=== PATIENT | female | born 1945 | race Caucasian/White ===

== ENCOUNTER 2021-02-06 08:19 | Inpatient (IN) | payer OTHER, BC, SELFPAY ==
[~2021-02-06] VITALS: Ht 162.6 cm; Wt 51.3 kg
--- NOTE | 2021-02-06 08:30 | NUR ---
Placed in room 8 . Placed on desk monitor, blood pressure machine and pulse oximeter. To gown for exam. Side rails up. Report given to JUANITA Valiente.
[2021-02-06 08:43] VITALS: BP_SYST 111
--- NOTE | 2021-02-06 08:46 | NUR ---
ER Dr. Hurd at bedside examining patient.
--- NOTE | 2021-02-06 08:54 | NUR ---
Pt BIB via wheel chair, c/o N/V x5 days after eating [place], weakness, no pain. Pt A&O x3-4 at this time.
[2021-02-06] MEDS ORDERED: NACL 0.9% 1,000 ML IV ONE (09:00)
[2021-02-06 09:21] LABS: BASOPHILS % (AUTO) 0.7 % (0.0-2.0); LYMPHOCYTES # (AUTO) 0.9 K/uL (1.0-5.5); LYMPHOCYTES % (AUTO) 12.5 % (20.5-51.5); MEAN CORPUSCULAR HEMOGLOBIN 34 pg (27-31); MEAN CORPUSCULAR HGB CONC 33 % (32-36); MEAN CORPUSCULAR VOLUME 102 fL (79.0-98.0); MONOCYTES # (AUTO) 0.3 K/uL (0.0-1.0); MONOCYTES % (AUTO) 4.4 % (1.7-9.3); NEUTROPHILS # (AUTO) 5.8 K/uL (1.8-7.7); NEUTROPHILS % (AUTO) 82.4 % (40.0-70.0); PLATELET COUNT (AUTO) 213 K/uL (130-430); RED CELL DISTRIBUTION WIDTH 14.3 % (9.0-15.0); WHITE BLOOD COUNT (AUTO) 7.1 K/uL (4.8-10.8)
[2021-02-06 09:26] LABS: ANION GAP 11 (5-15); CALCIUM 8.6 mg/dL (8.4-11.0); CHLORIDE 107 mmol/L (98-107); CREATININE 1.24 mg/dL (0.55-1.30); GLUCOSE 169 mg/dL (70-99); POTASSIUM 3.9 mmol/L (3.5-5.1); SODIUM SERUM 140 mmol/L (136-145); UREA NITROGEN, BLOOD 44 mg/dL (8-21)
--- NOTE | 2021-02-06 09:28 | NUR ---
Radiology at bedside with patient.
[2021-02-06 09:29] LABS: PROTHROMBIN TIME 10.8 SECS (9.5-12.5)
[2021-02-06 09:31] LABS: RED BLOOD CELL COUNT(AUTO) 1.51 MIL/uL (4.2-6.2)
[2021-02-06 09:32] LABS: HEMATOCRIT 15.4 % (36-48); HEMOGLOBIN 5.1 g/dL (12.0-16.0)
--- NOTE | 2021-02-06 09:50 | NUR ---
COVID swab performed at bedside and sent to lab
[2021-02-06 09:51] LABS: ALANINE AMINOTRANSFERASE 23 U/L (12-78); ALBUMIN 3.2 g/dL (3.4-4.8); ASPARTATE AMINOTRANSFERASE 11 U/L (10-37); TOTAL BILIRUBIN 0.2 mg/dL (0.0-1.0)
--- NOTE | 2021-02-06 09:59 | NUR ---
CONSENT OBTAINED FOR BLOOD TRANSFUSION
--- NOTE | 2021-02-06 10:00 | NUR ---
# 20 gauge angiocath placed to RAC. Use of asceptic technique. Opsite placed over site. Blood return noted. Blood for lab drawn from site. Flushed with 10 cc of normal saline. No evidence of infiltration noted. Patient tolerated well.
[2021-02-06] MEDS ORDERED: PANTOPRAZOLE SODIUM 40 MG in NS 50 ML IV ONE (10:15)
[2021-02-06] MEDS ORDERED: PANTOPRAZOLE SODIUM 80 MG in NS 100 ML IV ONE ×2 (10:15→10:30)
[2021-02-06] MEDS ORDERED: ZALE10CA PO (10:22)
[2021-02-06] MEDS ORDERED: DIVA500T4 PO (10:22)
[2021-02-06] MEDS ORDERED: LOSA100T3 PO (10:22)
[2021-02-06] MEDS ORDERED: PRO40 PO (10:22)
[2021-02-06] MEDS ORDERED: ZOLP10TA2 PO (10:22)
[2021-02-06] MEDS ORDERED: RIVA1PAT3 TP (10:22)
[2021-02-06] MEDS ORDERED: OLAN2.5T29 PO (10:22)
[2021-02-06] MEDS ORDERED: VITD2000 PO (10:22)
[2021-02-06] MEDS ORDERED: TRAZ-250 PO (10:22)
[2021-02-06] MEDS ORDERED: FERR236T3 PO (10:22)
--- NOTE | 2021-02-06 10:23 | NUR ---
Medication reconciliation completed with information provided by PT'S . Any prior medication reconciliation on file was reviewed and corrected.
[2021-02-06] MEDS ORDERED: PANTOPRAZOLE SODIUM 40 MG/VIAL (PROTONIX) ONE ×3 (10:25→20:29)
[2021-02-06 10:38] LABS: BILIRUBIN,URINE NEGATIVE (NEGATIVE); BLOOD, URINE NEGATIVE (NEGATIVE); CLARITY/URINE CLEAR (CLEAR); COLOR,URINE YELLOW (YELLOW); GLUCOSE,URINE NEGATIVE (NEGATIVE); KETONES,URINE NEGATIVE (NEGATIVE); LEUKOCYTE ESTERASE ,URINE TRACE (NEGATIVE); NITRITE, URINE POSITIVE (NEGATIVE); PH,URINE 5.5 (5.0-8.0); PROTEIN URINE NEGATIVE (NEGATIVE); UROBILINOGEN,URINE 0.2 (0.2-1.0)
--- NOTE | 2021-02-06 10:46 | NUR ---
Called ICU to request bed for patient, Charge nurse Rizwana is in with a patient, she will call me back.
--- NOTE | 2021-02-06 11:30 | NUR ---
PER LAB BLOOD CAME BACK ANTIBODY+, DELAY IN PRBC'S, WILL CALL BACK WITH UPDATE
[2021-02-06 12:13] LABS: RBC,URINE 0-3 /HPF (0-3)
[2021-02-06 12:14] LABS: BACTERIA,URINE MANY /HPF (None Seen)
[2021-02-06] MEDS: D5NS 1,000 ML IV SCH ×2 (12:49→20:33)
--- NOTE | 2021-02-06 13:27 | NUR ---
PER LAB [facility] HAS BEEN CONTACTED FOR APPROPRIATE BLOOD PRODUCTS STAT, WILL CALL BACK FOR UPDATE
--- NOTE | 2021-02-06 15:00 | NUR ---
1ST UNIT OF PRBC STARTED PER PROTOCOL, V/S STABLE, PT AAOX4
--- NOTE | 2021-02-06 15:43 | NUR ---
PT PROVIDED WITH HOSPITAL BED, FRESH LININS
[2021-02-06] MEDS ORDERED: PANTOPRAZOLE SODIUM 40 MG/VIAL (PROTONIX) IVP ONE (16:00)
--- NOTE | 2021-02-06 16:50 | NUR ---
2ND UNIT PRBC'S STARTED, PT TOLERATING WELL
--- NOTE | 2021-02-06 17:30 | NUR ---
PT RESTING IN BED, AOX4, V/S STABLE, WATCHING TV
--- NOTE | 2021-02-06 19:10 | NUR ---
REPORT GIVEN TO JUANITA ENGLISH FOR CONTINUING CARE
--- NOTE | 2021-02-06 19:50 | NUR ---
Patient will be admitted to care of Dr. Peoples. Admitted to ICU unit. Will go to room ICU 3. Belongings list completed. Complete and up to date summary report printed. SBAR report to be given at bedside with opportunity for questions.
--- NOTE | 2021-02-06 19:50 | NUR ---
Transfer to ICU via ACLS protocol. Licensed nurse present. IV present no signs or symptoms of infiltration.
[2021-02-06 20:04] LABS: HEMATOCRIT 20.6 % (36-48)
[2021-02-06 20:09] LABS: TOTAL IRON BIND. CAPACITY 235 ug/dL (250-450)
[2021-02-06 20:10] VITALS: BP_SYST 137
[2021-02-06] MEDS: traZODone HCL 50 MG TABLET (DESYREL) PO SCH (20:32)
[2021-02-06] MEDS: PANTOPRAZOLE SODIUM 40 MG/VIAL (PROTONIX) IVP SCH (20:32)
[2021-02-06] MEDS: ZOLPIDEM TARTRATE 5 MG TABLET PO PRN (20:32)
[2021-02-06 21:00] VITALS: BP_SYST 130
[2021-02-06] MEDS: DIVALPROEX SODIUM 500 MG TAB.SR.24H (DEPAKOTE ER) PO SCH (21:00)
[2021-02-06] MEDS ORDERED: PANTOPRAZOLE SODIUM 40 MG TAB PO SCH (21:00)
--- NOTE | 2021-02-06 21:07 | NUR ---
PAGED FOR ORDERS DIALED: [phone] SPOKE TO: ROBERTO
--- NOTE | 2021-02-06 21:25 | NUR ---
PAGED: CALLED DR. MARINO & INFORMED OF NEW HGB RESULT= 7.0 RECEIVED NEW ORDER FOR 1 PRBC. TELEPHONE ORDER READ BACK & VERIFIED.
[2021-02-06 22:00] VITALS: BP_SYST 113
[2021-02-06 23:00] VITALS: BP_SYST 119
[2021-02-07] VITALS (17 sets, daily range): BP systolic 101–135
--- NOTE | 2021-02-07 01:18 | NUR ---
BT INITIATION: 2 RNs verified blood prior to transfusion. Vital signs taken within 5 minutes prior to initiation of transfusion. RN will remain with patient for first 15 minutes of transfusion at which time vital signs will be re-assessed. Patient aware of blood transfusion. Denies any respiratory issues or any other complaints.
--- NOTE | 2021-02-07 04:00 | NUR ---
Blood transfusion received. NS bag flushed. Patient is AAOx4. Communicates verbally. Cooperative and denies any complaints.
--- NOTE | 2021-02-07 04:59 | NUR ---
Nutrition Update Kiko Scale 18 noted. Pt admitted for Anemia Diet: Clear liquid BMI: 19.4 kg/m2 RD to follow per nutrition care standards.
[2021-02-07 05:38] LABS: HEMATOCRIT 23.6 % (36-48)
--- NOTE | 2021-02-07 09:30 | NUR ---
Dr. Brown aware of consult
--- NOTE | 2021-02-07 09:30 | NUR ---
Call Dr. Barker with a consult, spoke with Shy from doctors office
[2021-02-07] MEDS: PANTOPRAZOLE SODIUM 40 MG/VIAL (PROTONIX) IVP SCH ×2 (09:49→21:32)
[2021-02-07] MEDS: DIVALPROEX SODIUM 500 MG TAB.SR.24H (DEPAKOTE ER) PO SCH ×2 (09:49→21:32)
[2021-02-07] MEDS: D5NS 1,000 ML IV SCH ×2 (09:50→21:38)
[2021-02-07 10:38] LABS: HEMATOCRIT 24.2 % (36-48); HEMOGLOBIN 8.3 g/dL (12.0-16.0)
--- NOTE | 2021-02-07 14:30 | NUR ---
Given report to Sarah, patient is going to room 110 b, patient did have 2 bm , black in color, patient with d5 ns at 60 ml/hr, and will be prepared for egd and colonoscopy.
--- NOTE | 2021-02-07 14:35 | NUR ---
Received report from Jag/TOUCH UP WORKER for continuity of care. Pt to transfer to RM 110B.
--- NOTE | 2021-02-07 15:15 | NUR ---
Opening Notes Patient is awake, alert and oriented x4. No resp distress noted. Breathing is even and unlabored. Pt is c/o 3/10 headache, requesting Tylenol. Will follow up with Dr. Bush. IV site on right AC 20 gauge intact at this time. D5NS @ 60 cc/hr, infusing well at this time. IV site is leaking at this time. Will restart IV start. Pt denies any NVD, cough. Pt reports dark stools, but no episodes today. Pt is ambulatory, supervision needed. , Alphonse by bedside. Pt educated on bowel prep for EGD and colonoscopy tomorrow. All needs met. Safety and fall precautions in place. Bed in lowest position, alarm on, locked. Will continue to monitor.
--- NOTE | 2021-02-07 16:00 | NUR ---
Notes Patient is laying in bed, resting at this time. No resp distress noted. Breathing is even and unlabored. Will continue to monitor.
[2021-02-07] MEDS ORDERED: ACETAMINOPHEN 325 MG TABLET PO PRN (16:30)
[2021-02-07] MEDS ORDERED: ACETAMINOPHEN 325 MG TABLET ONE (16:36)
[2021-02-07 16:50] LABS: HEMATOCRIT 23.6 % (36-48); HEMOGLOBIN 8.2 g/dL (12.0-16.0)
[2021-02-07] MEDS ORDERED: BISACODYL 5 MG TABLET.DR (DULCOLAX) PO ONE (17:00)
[2021-02-07] MEDS ORDERED: GOLYTELY / COLYTE SOLUTION 4 LITERS PO ONE (18:00)
--- NOTE | 2021-02-07 18:45 | NUR ---
Closing Notes Patient is awake, alert and oriented x4. , Alphonse by bedside. No resp distress noted. Breathing is even and unlabored. Pt denies any pain at this time. IV site on left FA 20 gauge intact at this time. D5NS @ 60 cc/hr, infusing well at this time. Pt in process of drinking Golytely. Will endorse to next shift to follow up. NPO by midnight. All needs met. Safety and fall precautions in place. Bed in lowest position, locked. Will continue to monitor.
[2021-02-07] MEDS ORDERED: DIVALPROEX SODIUM 500 MG TAB.SR.24H (DEPAKOTE ER) PO ONE (21:14)
[2021-02-07] MEDS: traZODone HCL 50 MG TABLET (DESYREL) PO SCH (21:32)
--- NOTE | 2021-02-07 21:40 | NUR ---
Golytely/Bathroom Pt finished drinking bottle of Golyetely. Ambulates to the bathroom. Notice loose black stool in toilet. BSC provided to pt for the night as pt requests Ambien for sleep. Encouraged pt to call for assistance. Pt verb understanding. To monitor.
[2021-02-07] MEDS: ZOLPIDEM TARTRATE 5 MG TABLET PO PRN (23:17)
[2021-02-08 00:19] LABS: HEMATOCRIT 25.2 % (36-48); HEMOGLOBIN 8.5 g/dL (12.0-16.0)
[2021-02-08 01:23] VITALS: BP_SYST 120
--- NOTE | 2021-02-08 02:00 | NUR ---
Rounds Pt asleep, no s/s distress noted. IVF infusing at ordered rate. Bed low, locked, siderails up x3. To monitor.
--- NOTE | 2021-02-08 06:05 | NUR ---
Closing notes/Tap water enema @ 0535: Pt awake. Explained to pt procedure. Tap water enema approx total of 1L given. Pt had multiple pebble like black stool after 1st enema. After 2nd enema, black small sediments watery stool noted. Pt tolerated well. Pericare supplies provided and gown and linens changed. IVF infusing at ordered rate L. FA 20G clear and patent. Call light within reach. Bed low, locked, siderails up x2. To endorse to AM nurse.
--- NOTE | 2021-02-08 06:41 | NUR ---
Moisés Brown, spoke with Jasmin answering service. Pt's bowel is not clear. Awaiting callback.
[2021-02-08 07:35] LABS: HEMATOCRIT 28.3 % (36-48); HEMOGLOBIN 9.3 g/dL (12.0-16.0)
[2021-02-08 07:45] VITALS: BP_SYST 120
--- NOTE | 2021-02-08 07:45 | NUR ---
0745: Rec'd pt A+Ox4, laying in bed. Pt denies pain. IV noted to arm infusing D5NS@60ml/hr. CSMW satisfactory. No headache/dizziness, chest pain, numbness, tingling, edema. Lungs clear. No SOB/cough. RA 100%. BSx4. LBM this am from bowel prep- "black rashmi, sediment" per mini shifter nurse report. Void QS. No N+V. No skin concerns. VSS. NPO for EGD/colonoscopy. 0845: Pt left floor for EGD. 1015: Pt back from EGD. Report taken. Pt doing well. VSS. No concerns. Will continue to monitor.
[2021-02-08] MEDS: DIVALPROEX SODIUM 500 MG TAB.SR.24H (DEPAKOTE ER) PO SCH (07:50)
[2021-02-08] MEDS: PANTOPRAZOLE SODIUM 40 MG/VIAL (PROTONIX) IVP SCH ×2 (07:52→21:17)
[2021-02-08] MEDS ORDERED: BENZOCAINE 20% 0.5mL UD SPRAY MM ONE (07:56)
[2021-02-08] MEDS ORDERED: SIMETHICONE 40 MG/0.6 ML ML ONE (07:56)
[2021-02-08 08:00] VITALS: BP_SYST 120
[2021-02-08] MEDS: MIDAZOLAM HCL 5 MG/5 ML VIAL ONE ×2 (08:59→09:02)
[2021-02-08] MEDS: fentaNYL CITRATE/PF 100 MCG/2 ML AMP ONE ×2 (08:59→09:02)
[2021-02-08] MEDS: cefTRIAXone 1 GM IVPB PREMIX 50 ML IV SCH (11:59)
--- NOTE | 2021-02-08 12:08 | NUR ---
commode emptied for black tarry stool. Will continue to monitor.
[2021-02-08 12:16] VITALS: BP_SYST 135
[2021-02-08] MEDS: D5NS 1,000 ML IV SCH (14:41)
--- NOTE | 2021-02-08 15:20 | NUR ---
Pt moved into room 109-C due to renovations in 110.
[2021-02-08 16:28] VITALS: BP_SYST 138
[2021-02-08] MEDS ORDERED: MAGNESIUM CITRATE 300 ML ORAL SOLUTION PO ONE (17:00)
[2021-02-08] MEDS ORDERED: BISACODYL 5 MG TABLET.DR (DULCOLAX) PO ONE (17:00)
--- NOTE | 2021-02-08 17:56 | NUR ---
Pt resting in bed with at bedside. No voiced concerns. Pt sipping at bowel prep (mag citrate). Pt still reports black tarry stools. IVF infusing. Will continue to monitor.
--- NOTE | 2021-02-08 19:40 | NUR ---
ROUNDS PATIENT RESTING COMFORTABLY IN BED, NOT IN DISTRESS, VITALS STABLE. ASSESSMENT DONE AND DOCUMENTED. NEEDS ATTENDED TO. SAFETY MEASURES IN PLACED. CALL LIGHT PLACED WITHIN REACH.
[2021-02-08 19:59] LABS: HEMATOCRIT 25.3 % (36-48); HEMOGLOBIN 8.7 g/dL (12.0-16.0)
[2021-02-08] MEDS: DIVALPROEX SODIUM 250 MG TAB.SR.24H (DEPAKOTE ER) PO SCH (21:00)
[2021-02-08] MEDS: traZODone HCL 50 MG TABLET (DESYREL) PO SCH (21:17)
[2021-02-09 00:23] VITALS: BP_SYST 127
[2021-02-09 00:47] LABS: HEMATOCRIT 23.4 % (36-48); HEMOGLOBIN 7.9 g/dL (12.0-16.0)
[2021-02-09] MEDS ORDERED: MAGNESIUM CITRATE 300 ML ORAL SOLUTION PO ONE (04:00)
[2021-02-09] MEDS: D5NS 1,000 ML IV SCH ×2 (04:02→23:17)
--- NOTE | 2021-02-09 05:09 | NUR ---
TAP WATER ENEMA TAP WATER ENEMA DONE, TOLERATED WELL, RETURN FLOW OUTPUT CLEAR. WILL CONTINUE TO MONITOR.
[2021-02-09 06:42] LABS: HEMATOCRIT 24.6 % (36-48); HEMOGLOBIN 8.4 g/dL (12.0-16.0)
[2021-02-09] MEDS: DIVALPROEX SODIUM 250 MG TAB.SR.24H (DEPAKOTE ER) PO SCH ×2 (07:15→21:47)
[2021-02-09 07:30] VITALS: BP_SYST 142
--- NOTE | 2021-02-09 07:30 | NUR ---
0745: Rec'd pt A+Ox4, laying in bed. Pt denies pain. IV noted to arm infusing D5NS@60ml/hr- infiltrated- re-sited to AC area-22g. CSMW satisfactory. No headache/dizziness, chest pain, numbness, tingling, edema. Lungs clear. No SOB/cough. RA 94%. BSx4. LBM this am from bowel prep- clear. Void QS. No N+V. No skin concerns. VSS. NPO for colonoscopy. Will continue to monitor.
[2021-02-09] MEDS: PANTOPRAZOLE SODIUM 40 MG/VIAL (PROTONIX) IVP SCH ×2 (07:35→21:46)
[2021-02-09] MEDS ORDERED: SIMETHICONE 40 MG/0.6 ML ML ONE (07:46)
[2021-02-09 08:05] VITALS: BP_SYST 142
--- NOTE | 2021-02-09 09:20 | NUR ---
Pt left for colonoscopy
[2021-02-09] MEDS: MIDAZOLAM HCL 5 MG/5 ML VIAL ONE ×2 (09:46→09:50)
[2021-02-09] MEDS: fentaNYL CITRATE/PF 100 MCG/2 ML AMP ONE ×2 (09:46→09:51)
--- NOTE | 2021-02-09 10:45 | NUR ---
Pt returned from colonoscopy
[2021-02-09 11:42] LABS: HEMATOCRIT 23.8 % (36-48); HEMOGLOBIN 8.1 g/dL (12.0-16.0)
[2021-02-09] MEDS: cefTRIAXone 1 GM IVPB PREMIX 50 ML IV SCH (11:54)
[2021-02-09 12:22] VITALS: BP_SYST 133
[2021-02-09 16:51] VITALS: BP_SYST 137
--- NOTE | 2021-02-09 18:02 | NUR ---
Pt resting in bed eating dinner. at bedside. No voiced concerns. Call mcmillan in reach. Bed in low position. Will continue to monitor.
[2021-02-09 18:38] LABS: HEMATOCRIT 22.6 % (36-48); HEMOGLOBIN 7.6 g/dL (12.0-16.0)
--- NOTE | 2021-02-09 19:35 | NUR ---
ROUNDS PATIENT RESTING COMFORTABLY IN BED, VITALS STABLE, NO PAIN AT THIS TIME. ASSESSMENT DONE AND DOCUMENTED. SEE FLOWSHEET. NEEDS ATTENDED TO. CALL LIGHT PLACED WITHIN REACH.
--- NOTE | 2021-02-09 21:16 | NUR ---
MEDICATIONS DUE MEDICATIONS GIVEN SCHEDULED, TOLERATED WELL. WILL CONTINUE TO MONITOR.
[2021-02-09] MEDS: traZODone HCL 50 MG TABLET (DESYREL) PO SCH (21:46)
[2021-02-10 00:25] VITALS: BP_SYST 139
--- NOTE | 2021-02-10 06:51 | NUR ---
CLOSING NOTES PATIENT AWAKE, NO COMPLAINTS AT THIS TIME, ALL NEEDS ATTENDED TO. CALL LIGHT PLACED WITHIN REACH.
[2021-02-10] MEDS: PANTOPRAZOLE SODIUM 40 MG/VIAL (PROTONIX) IVP SCH (07:31)
[2021-02-10] MEDS: DIVALPROEX SODIUM 250 MG TAB.SR.24H (DEPAKOTE ER) PO SCH (07:32)
[2021-02-10 07:55] LABS: HEMATOCRIT 24.1 % (36-48)
[2021-02-10 08:35] VITALS: BP_SYST 130
[2021-02-10 08:37] VITALS: BP_SYST 130
--- NOTE | 2021-02-10 08:45 | NUR ---
0730: Rec'd pt A+Ox4, laying in bed. Pt denies pain. IV noted to L AC- infusing D5NS@60ml/hr. CSMW satisfactory. No headache/dizziness, chest pain, numbness, tingling, edema. Lungs clear. No SOB/cough. RA 99%. BSx4. LBM Feb 10- pt states "diarrhea and still black." Void QS. No N+V. No skin concerns. VSS. Med accepting. Low fibre/bland diet. Will continue to monitor.
[2021-02-10 10:17] VITALS: BP_SYST 130
--- NOTE | 2021-02-10 10:37 | NUR ---
Pt discharged. IV removed. All belongings taken home. No home medications to return. DC docs reviewed. All questions answered. Follow up discussed. Pt left in wheelchair out with MANAGEMENT ACCOUNTS MANAGER outside with to car.
== END 2021-02-10 11:00 | disposition home or self-care (01) | DRG 378 ==
LOC: SED 08:19 → SIC 10:51 → SMU 02-07 14:56
PROVIDERS: ADMIT Internal Medicine Hospice and Palliative Medicine; ATTEND Internal Medicine Hospice and Palliative Medicine
PROC: 0DB78ZX Excision of Stomach, Pylorus, Via Natural or Artificial Opening Endoscopic, Diagnostic (ICD-10-PCS; 2021-02-08)
PROC: 0DJD8ZZ Inspection of Lower Intestinal Tract, Via Natural or Artificial Opening Endoscopic (ICD-10-PCS; 2021-02-08)
PROC: 30233N1 Transfusion of Nonautologous Red Blood Cells into Peripheral Vein, Percutaneous Approach (ICD-10-PCS; 2021-02-08)
PROC: 0DB98ZX Excision of Duodenum, Via Natural or Artificial Opening Endoscopic, Diagnostic (ICD-10-PCS; principal; 2021-02-08 09:00)
DX: K26.4 Chronic or unspecified duodenal ulcer with hemorrhage (principal); D62 Acute posthemorrhagic anemia; N39.0 Urinary tract infection, site not specified; K57.31 Diverticulosis of large intestine without perforation or abscess with bleeding; K25.4 Chronic or unspecified gastric ulcer with hemorrhage; I10 Essential (primary) hypertension; G43.909 Migraine, unspecified, not intractable, without status migrainosus; G40.909 Epilepsy, unspecified, not intractable, without status epilepticus; K64.8 Other hemorrhoids; K46.9 Unspecified abdominal hernia without obstruction or gangrene; Z20.822 Contact with and (suspected) exposure to COVID-19; Z88.5 Allergy status to narcotic agent; Z79.899 Other long term (current) drug therapy; Z90.710 Acquired absence of both cervix and uterus
CPT/HCPCS: 36415; 36430; 43239; 45378; 71045; 80053; 81000; 82272; 82607; 82728; 82746; 83010; 83540; 83550; 83605; 83615; 84443; 84484; 85018; 85025; 85384; 85610-TC; 85730-TC; 86870; 86886; 86900; 86901; 86920; 87081; 87086; 88305; 88312; 88313; 93005; 96365; 96368; 99291; C9113; J0696; J2250; J3010; P9021

== ENCOUNTER 2023-01-03 21:26 | Emergency (ER) | payer OTHER, BC ==
[~2023-01-03] VITALS: Ht 167.6 cm; Wt 59.0 kg
[~2023-01-03 21:26] MED LIST: DIVA500T4 PO; FERR236T3 PO; LOSA-415 PO; OLAN2.5T29 PO; PRO40 PO; RIVA1PAT3 TP; TRAZ-250 PO; VITD2000 PO; ZALE10CA PO; ZOLP10TA2 PO
[2023-01-03 22:39] VITALS: BP_SYST 104; PULSE 102; RESP 18; TEMP 98.3; O2SAT 99
[2023-01-04 00:41] VITALS: BP_SYST 105; PULSE 81; RESP 20; TEMP 98.1; O2SAT 98
== END 2023-01-04 00:41 | disposition home or self-care (01) ==
LOC: SED 21:26
DX: S01.01XA Laceration without foreign body of scalp, initial encounter (principal); Z88.5 Allergy status to narcotic agent; Z79.899 Other long term (current) drug therapy; W18.40XA Slipping, tripping and stumbling without falling, unspecified, initial encounter; Y93.89 Activity, other specified; Y92.89 Other specified places as the place of occurrence of the external cause; Y99.8 Other external cause status
CPT/HCPCS: 70450-TC; 76376; 99284

== ENCOUNTER 2023-02-26 03:27 | Inpatient (IN) | payer OTHER, BC ==
[~2023-02-26] VITALS: Ht 167.6 cm; Wt 48.1 kg
[2023-02-26 03:30] VITALS: BP_SYST 86; PULSE 84; RESP 18; TEMP 98.1; O2SAT 98
[2023-02-26] MEDS ORDERED: NACL 0.9% 1,000 ML IV ONE (03:45)
[2023-02-26] MEDS ORDERED: NOREPINEPHRINE BITARTRATE 4 MG in NS 246 ML IV ONE (03:45)
[2023-02-26] MEDS ORDERED: PANTOPRAZOLE SODIUM 80 MG in NS 100 ML IVP ONE (04:15)
[2023-02-26] MEDS ORDERED: PANTOPRAZOLE SODIUM 40 MG/VIAL (PROTONIX) ONE (04:49)
[2023-02-26 05:01] LABS: BASOPHILS % (AUTO) 0.3 % (0.0-2.0); LYMPHOCYTES # (AUTO) 0.7 K/uL (1.0-5.5); MEAN CORPUSCULAR HEMOGLOBIN 31 pg (27-31); MEAN CORPUSCULAR HGB CONC 31 % (32-36); MEAN CORPUSCULAR VOLUME 102 fL (79.0-98.0); MONOCYTES # (AUTO) 0.7 K/uL (0.0-1.0); MONOCYTES % (AUTO) 6.2 % (1.7-9.3); NEUTROPHILS # (AUTO) 10.1 K/uL (1.8-7.7); NEUTROPHILS % (AUTO) 87.5 % (40.0-70.0); PLATELET COUNT (AUTO) 461 K/uL (130-430); RED CELL DISTRIBUTION WIDTH 14.4 % (9.0-15.0); WHITE BLOOD COUNT (AUTO) 11.6 K/uL (4.8-10.8)
[2023-02-26] MEDS ORDERED: NOREPINEPHRINE 4 MG/4 ML VIAL IV ONE (05:14)
[2023-02-26 05:15] LABS: HEMATOCRIT 18.2 % (36-48); HEMOGLOBIN 5.6 g/dL (12.0-16.0)
[2023-02-26 05:22] LABS: ANION GAP 16 (5-15); CALCIUM 9.1 mg/dL (8.4-11.0); CARBON DIOXIDE 18 mmol/L (23-29); CHLORIDE 107 mmol/L (98-107); CREATININE 1.61 mg/dL (0.55-1.30); GLUCOSE 163 mg/dL (74-106); SODIUM SERUM 141 mmol/L (136-145); UREA NITROGEN, BLOOD 50 mg/dL (8-21)
[2023-02-26 05:27] LABS: ALANINE AMINOTRANSFERASE 27 U/L (12-78); ALBUMIN 3.2 g/dL (3.4-4.8); ASPARTATE AMINOTRANSFERASE 23 U/L (10-37); BILIRUBIN,DIRECT < 0.1 mg/dL (0.0-0.3); TOTAL BILIRUBIN 0.2 mg/dL (0.0-1.0); TOTAL PROTEIN, SERUM 5.5 g/dL (6.4-8.3)
[2023-02-26 05:43] LABS: BILIRUBIN,URINE NEGATIVE (NEGATIVE); BLOOD, URINE NEGATIVE (NEGATIVE); COLOR,URINE YELLOW (YELLOW); GLUCOSE,URINE NEGATIVE (NEGATIVE); KETONES,URINE NEGATIVE (NEGATIVE); LEUKOCYTE ESTERASE ,URINE TRACE (NEGATIVE); NITRITE, URINE NEGATIVE (NEGATIVE); PROTEIN URINE NEGATIVE (NEGATIVE); UROBILINOGEN,URINE 0.2 (0.2-1.0)
[2023-02-26 05:58] LABS: CLARITY/URINE SLIGHTLY CLOUDY (CLEAR)
[2023-02-26 05:59] LABS: BACTERIA,URINE MANY /HPF (None Seen); RBC,URINE 0-3 /HPF (0-3)
[2023-02-26] MEDS: D5NS 1,000 ML IV SCH ×4 (07:30→21:34)
[2023-02-26] MEDS ORDERED: DOCUSATE SODIUM 100 MG CAPSULE PO PRN (09:00)
[2023-02-26] MEDS ORDERED: ACETAMINOPHEN 325 MG TABLET PO PRN ×3 (09:00→09:30)
[2023-02-26] MEDS ORDERED: POTASSIUM CHLORIDE 20 MEQ TABLET.ER PO PRN (09:00)
[2023-02-26] MEDS ORDERED: ONDANSETRON HCL 4 MG/2 ML VIAL IVP PRN (09:00)
[2023-02-26] MEDS ORDERED: LORazepam 2 MG/ML VIAL IVP PRN (09:00)
[2023-02-26] MEDS ORDERED: MUPIROCIN 2% TOPICAL OINTMENT 22 GM NS PRN (09:00)
[2023-02-26] MEDS ORDERED: MAGNESIUM SULFATE 50 ML IV PRN (09:00)
[2023-02-26] MEDS ORDERED: PANTOPRAZOLE SODIUM 40 MG/VIAL (PROTONIX) IVP SCH (09:00)
[2023-02-26 09:17] LABS: INR 1.1 (0.8-1.2); PROTHROMBIN TIME 11.5 SECS (9.5-12.5)
[2023-02-26] MEDS ORDERED: DIVA-72 PO (09:19)
[2023-02-26 09:25] LABS: TOTAL IRON BIND. CAPACITY 285 ug/dL (250-450)
[2023-02-26] MEDS ORDERED: cefTRIAXone 1 GM VIAL ONE (09:27)
[2023-02-26] MEDS: cefTRIAXone 1 GM in D5W 50 ML IV SCH (09:31)
[2023-02-26] MEDS: DIVALPROEX SODIUM 250 MG TABLET(DEPAKOTE) PO SCH ×2 (09:54→21:33)
[2023-02-26] MEDS: OLANZapine 2.5 MG TABLET PO SCH (09:55)
[2023-02-26] MEDS: PANTOPRAZOLE SODIUM 40 MG in NS 50 ML IV SCH ×3 (10:03→20:48)
[2023-02-26] MEDS: RIVASTIGMINE 9.5 MG/24 HR PATCH.TD24 TP SCH (11:11)
[2023-02-26] MEDS ORDERED: NOREPINEPHRINE BITARTRATE 4 MG in NS 246 ML IV PRN (12:00)
[2023-02-26] MEDS ORDERED: ACETAMINOPHEN 500 MG TABLET ONE (16:40)
[2023-02-26 17:51] LABS: MEAN CORPUSCULAR HEMOGLOBIN 31 pg (27-31); MEAN CORPUSCULAR HGB CONC 32 % (32-36); MEAN CORPUSCULAR VOLUME 96 fL (79.0-98.0); PLATELET COUNT (AUTO) 327 K/uL (130-430); RED CELL DISTRIBUTION WIDTH 16.8 % (9.0-15.0); WHITE BLOOD COUNT (AUTO) 17.5 K/uL (4.8-10.8)
[2023-02-26 18:01] LABS: HEMATOCRIT 20.2 % (36-48); HEMOGLOBIN 6.5 g/dL (12.0-16.0)
[2023-02-26] MEDS ORDERED: DIPHENHYDRAMINE HCL 25 MG CAPSULE ONE (18:26)
[2023-02-26] MEDS ORDERED: DIPHENHYDRAMINE HCL 12.5 MG/5 ML UDC PO ONE (18:30)
[2023-02-26] MEDS ORDERED: ACETAMINOPHEN 500 MG TABLET PO PRN ×2 (18:30)
[2023-02-26] MEDS ORDERED: DIPHENHYDRAMINE HCL 25 MG CAPSULE PO ONE (18:45)
[2023-02-26 19:00] VITALS: BP_SYST 117; PULSE 112; RESP 21; O2SAT 98
[2023-02-26 20:00] VITALS: BP_SYST 117; PULSE 107; RESP 20; TEMP 99.8; O2SAT 97
[2023-02-26 21:00] VITALS: BP_SYST 115; PULSE 104; RESP 20; O2SAT 98
[2023-02-26] MEDS: traZODone HCL 50 MG TABLET (DESYREL) PO SCH (21:34)
[2023-02-26] MEDS ORDERED: traZODone HCL 50 MG TABLET (DESYREL) ONE (21:38)
[2023-02-26 21:56] LABS: BAND % (MANUAL) 9 % (0-6); BASOPHILS % (MANUAL) 0 % (0-2); EOSINOPHILS % (MANUAL) 0 % (0-7); LYMPHOCYTES % (MANUAL) 1 % (20-46); MONOCYTES % (MANUAL) 3 % (0-11); PLATELET ESTIMATE ADEQUATE (ADEQUATE); POLYCHROMASIA 1+
[2023-02-26 21:58] LABS: ANISOCYTOSIS 1+
[2023-02-26 22:00] VITALS: BP_SYST 114; PULSE 108; RESP 17; O2SAT 98
[2023-02-26 22:00] LABS: OVALOCYTES FEW
[2023-02-26 23:00] VITALS: BP_SYST 114; PULSE 108; RESP 17; O2SAT 98
[2023-02-26] MEDS: ACETAMINOPHEN 500 MG TABLET PO PRN (23:20)
[2023-02-27] VITALS (23 sets, daily range): BP systolic 101–161; PULSE 96–121; RESP 15–25; TEMP 98.6–99; O2SAT 95–99
[2023-02-27] MEDS: PANTOPRAZOLE SODIUM 40 MG in NS 50 ML IV SCH ×5 (00:23→20:19)
[2023-02-27 00:46] LABS: ANION GAP 10 (5-15); CALCIUM 8.2 mg/dL (8.4-11.0); CARBON DIOXIDE 21 mmol/L (23-29); CHLORIDE 106 mmol/L (98-107); CREATININE 1.18 mg/dL (0.55-1.30); GLUCOSE 146 mg/dL (74-106); SODIUM SERUM 137 mmol/L (136-145); UREA NITROGEN, BLOOD 34 mg/dL (8-21)
[2023-02-27 00:51] LABS: ALANINE AMINOTRANSFERASE 25 U/L (12-78); ALBUMIN 2.6 g/dL (3.4-4.8); ASPARTATE AMINOTRANSFERASE 25 U/L (10-37); TOTAL BILIRUBIN 0.4 mg/dL (0.0-1.0); TOTAL PROTEIN, SERUM 4.8 g/dL (6.4-8.3)
[2023-02-27] MEDS: ZOLPIDEM TARTRATE 5 MG TABLET PO PRN ×2 (01:19→20:20)
[2023-02-27 05:19] LABS: BASOPHILS % (AUTO) 0.1 % (0.0-2.0); LYMPHOCYTES # (AUTO) 0.7 K/uL (1.0-5.5); LYMPHOCYTES % (AUTO) 4.4 % (20.5-51.5); MEAN CORPUSCULAR HEMOGLOBIN 31 pg (27-31); MEAN CORPUSCULAR HGB CONC 33 % (32-36); MEAN CORPUSCULAR VOLUME 94 fL (79.0-98.0); MONOCYTES # (AUTO) 0.6 K/uL (0.0-1.0); MONOCYTES % (AUTO) 3.7 % (1.7-9.3); NEUTROPHILS # (AUTO) 15.4 K/uL (1.8-7.7); NEUTROPHILS % (AUTO) 91.8 % (40.0-70.0); PLATELET COUNT (AUTO) 297 K/uL (130-430); RED CELL DISTRIBUTION WIDTH 17.3 % (9.0-15.0); WHITE BLOOD COUNT (AUTO) 16.8 K/uL (4.8-10.8)
[2023-02-27 05:46] LABS: ANION GAP 11 (5-15); CALCIUM 8.4 mg/dL (8.4-11.0); CARBON DIOXIDE 19 mmol/L (23-29); CHLORIDE 108 mmol/L (98-107); CREATININE 0.95 mg/dL (0.55-1.30); GLUCOSE 131 mg/dL (74-106); POTASSIUM 3.7 mmol/L (3.5-5.1); SODIUM SERUM 138 mmol/L (136-145); UREA NITROGEN, BLOOD 30 mg/dL (8-21)
[2023-02-27 06:17] LABS: RED BLOOD CELL COUNT(AUTO) 1.78 MIL/uL (4.2-6.2)
[2023-02-27 06:18] LABS: HEMATOCRIT 16.8 % (36-48); HEMOGLOBIN 5.5 g/dL (12.0-16.0)
[2023-02-27 07:07] LABS: FOLATE (FOLIC ACID) >20.0 ng/mL (>3.0)
[2023-02-27 08:06] LABS: FERRITIN 30 ng/mL (15-150)
[2023-02-27] MEDS: DIVALPROEX SODIUM 250 MG TABLET(DEPAKOTE) PO SCH ×2 (08:08→20:20)
[2023-02-27] MEDS: OLANZapine 2.5 MG TABLET PO SCH (08:08)
[2023-02-27] MEDS: cefTRIAXone 1 GM in D5W 50 ML IV SCH (08:09)
[2023-02-27] MEDS: RIVASTIGMINE 9.5 MG/24 HR PATCH.TD24 TP SCH (10:06)
[2023-02-27] MEDS: D5NS 1,000 ML IV SCH ×2 (10:06→22:30)
[2023-02-27] MEDS ORDERED: PANTOPRAZOLE SODIUM 40 MG/VIAL (PROTONIX) ONE (10:06)
[2023-02-27] MEDS: metroNIDAZOLE 500 mg/NS 100 ML IV SCH ×2 (12:57→21:22)
[2023-02-27] MEDS: ACETAMINOPHEN 500 MG TABLET PO PRN (16:59)
[2023-02-27 17:56] LABS: BASOPHILS % (AUTO) 0.1 % (0.0-2.0); HEMATOCRIT 28.6 % (36-48); HEMOGLOBIN 9.6 g/dL (12.0-16.0); LYMPHOCYTES # (AUTO) 0.6 K/uL (1.0-5.5); LYMPHOCYTES % (AUTO) 3.5 % (20.5-51.5); MEAN CORPUSCULAR HEMOGLOBIN 31 pg (27-31); MEAN CORPUSCULAR HGB CONC 34 % (32-36); MEAN CORPUSCULAR VOLUME 92 fL (79.0-98.0); MONOCYTES # (AUTO) 0.6 K/uL (0.0-1.0); MONOCYTES % (AUTO) 3.6 % (1.7-9.3); NEUTROPHILS % (AUTO) 92.8 % (40.0-70.0); PLATELET COUNT (AUTO) 239 K/uL (130-430); RED CELL DISTRIBUTION WIDTH 16.6 % (9.0-15.0); WHITE BLOOD COUNT (AUTO) 16.1 K/uL (4.8-10.8)
[2023-02-27] MEDS: traZODone HCL 50 MG TABLET (DESYREL) PO SCH (20:20)
[2023-02-28] VITALS (19 sets, daily range): BP systolic 118–160; PULSE 85–111; RESP 16–21; TEMP 97.6–99; O2SAT 94–99
[2023-02-28] MEDS: PANTOPRAZOLE SODIUM 40 MG in NS 50 ML IV SCH ×5 (01:07→21:00)
[2023-02-28 05:06] LABS: BASOPHILS % (AUTO) 0.1 % (0.0-2.0); HEMATOCRIT 29.2 % (36-48); HEMOGLOBIN 9.7 g/dL (12.0-16.0); LYMPHOCYTES # (AUTO) 0.4 K/uL (1.0-5.5); LYMPHOCYTES % (AUTO) 2.7 % (20.5-51.5); MEAN CORPUSCULAR HEMOGLOBIN 31 pg (27-31); MEAN CORPUSCULAR HGB CONC 33 % (32-36); MEAN CORPUSCULAR VOLUME 92 fL (79.0-98.0); MONOCYTES # (AUTO) 0.6 K/uL (0.0-1.0); MONOCYTES % (AUTO) 4.1 % (1.7-9.3); NEUTROPHILS # (AUTO) 14.1 K/uL (1.8-7.7); NEUTROPHILS % (AUTO) 93.1 % (40.0-70.0); PLATELET COUNT (AUTO) 248 K/uL (130-430); RED BLOOD CELL COUNT(AUTO) 3.16 MIL/uL (4.2-6.2); RED CELL DISTRIBUTION WIDTH 16.5 % (9.0-15.0); WHITE BLOOD COUNT (AUTO) 15.1 K/uL (4.8-10.8)
[2023-02-28] MEDS: metroNIDAZOLE 500 mg/NS 100 ML IV SCH ×3 (05:13→20:55)
[2023-02-28 05:22] LABS: ANION GAP 11 (5-15); CALCIUM 7.4 mg/dL (8.4-11.0); CARBON DIOXIDE 22 mmol/L (23-29); CHLORIDE 106 mmol/L (98-107); CREATININE 0.63 mg/dL (0.55-1.30); GLUCOSE 134 mg/dL (74-106); POTASSIUM 3.3 mmol/L (3.5-5.1); SODIUM SERUM 139 mmol/L (136-145); UREA NITROGEN, BLOOD 13 mg/dL (8-21)
[2023-02-28] MEDS ORDERED: SIMETHICONE 40 MG/0.6 ML ML ONE (07:49)
[2023-02-28] MEDS ORDERED: MIDAZOLAM HCL 5 MG/5 ML VIAL ONE (07:50)
[2023-02-28] MEDS ORDERED: fentaNYL CITRATE/PF 100 MCG/2 ML AMP ONE (07:50)
[2023-02-28] MEDS: OLANZapine 2.5 MG TABLET PO SCH (09:00)
[2023-02-28] MEDS: DIVALPROEX SODIUM 250 MG TABLET(DEPAKOTE) PO SCH ×2 (09:00→20:55)
[2023-02-28] MEDS: cefTRIAXone 1 GM in D5W 50 ML IV SCH (10:04)
[2023-02-28] MEDS: RIVASTIGMINE 9.5 MG/24 HR PATCH.TD24 TP SCH (11:00)
[2023-02-28] MEDS: ACETAMINOPHEN 500 MG TABLET PO PRN (14:34)
[2023-02-28] MEDS: D5NS 1,000 ML IV SCH (18:00)
[2023-02-28] MEDS: traZODone HCL 50 MG TABLET (DESYREL) PO SCH (20:55)
[2023-03-01] VITALS: BP_SYST 144; PULSE 88; RESP 18; TEMP 98.5; O2SAT 96
[2023-03-01] MEDS: PANTOPRAZOLE SODIUM 40 MG in NS 50 ML IV SCH ×2 (02:48→06:42)
[2023-03-01] MEDS: D5NS 1,000 ML IV SCH ×2 (02:50→14:31)
[2023-03-01] MEDS: metroNIDAZOLE 500 mg/NS 100 ML IV SCH ×3 (05:02→20:42)
[2023-03-01 07:41] LABS: ANION GAP 8 (5-15); CALCIUM 7.5 mg/dL (8.4-11.0); CARBON DIOXIDE 25 mmol/L (23-29); CHLORIDE 100 mmol/L (98-107); CREATININE 0.58 mg/dL (0.55-1.30); GLUCOSE 121 mg/dL (74-106); POTASSIUM 3.1 mmol/L (3.5-5.1); SODIUM SERUM 133 mmol/L (136-145); UREA NITROGEN, BLOOD 7 mg/dL (8-21)
[2023-03-01 07:53] LABS: BASOPHILS % (AUTO) 0.4 % (0.0-2.0); EOSINOPHILS # (AUTO) 0.1 K/uL (0.0-0.4); EOSINOPHILS % (AUTO) 0.9 % (0.0-4.0); HEMATOCRIT 28.3 % (36-48); HEMOGLOBIN 9.8 g/dL (12.0-16.0); LYMPHOCYTES # (AUTO) 0.7 K/uL (1.0-5.5); LYMPHOCYTES % (AUTO) 6.6 % (20.5-51.5); MEAN CORPUSCULAR HEMOGLOBIN 32 pg (27-31); MEAN CORPUSCULAR HGB CONC 35 % (32-36); MEAN CORPUSCULAR VOLUME 94 fL (79.0-98.0); MONOCYTES # (AUTO) 0.6 K/uL (0.0-1.0); MONOCYTES % (AUTO) 5.6 % (1.7-9.3); NEUTROPHILS # (AUTO) 9.4 K/uL (1.8-7.7); NEUTROPHILS % (AUTO) 86.5 % (40.0-70.0); PLATELET COUNT (AUTO) 266 K/uL (130-430); RED BLOOD CELL COUNT(AUTO) 3.02 MIL/uL (4.2-6.2); RED CELL DISTRIBUTION WIDTH 16.4 % (9.0-15.0); WHITE BLOOD COUNT (AUTO) 10.8 K/uL (4.8-10.8)
[2023-03-01 08:00] VITALS: BP_SYST 154; PULSE 105; RESP 18; TEMP 97.8; O2SAT 97
[2023-03-01] MEDS: OLANZapine 2.5 MG TABLET PO SCH (09:38)
[2023-03-01] MEDS: cefTRIAXone 1 GM in D5W 50 ML IV SCH (09:39)
[2023-03-01] MEDS: DIVALPROEX SODIUM 250 MG TABLET(DEPAKOTE) PO SCH ×2 (09:39→20:42)
[2023-03-01] MEDS ORDERED: PANTOPRAZOLE SODIUM 40 MG/VIAL (PROTONIX) IVP ONE (11:00)
[2023-03-01 14:22] VITALS: BP_SYST 107; PULSE 82; RESP 18; TEMP 98.5; O2SAT 98
[2023-03-01] MEDS: RIVASTIGMINE 9.5 MG/24 HR PATCH.TD24 TP SCH (14:30)
[2023-03-01 19:40] VITALS: BP_SYST 126; PULSE 71; RESP 18; TEMP 97.9; O2SAT 97
[2023-03-01] MEDS: PANTOPRAZOLE SODIUM 40 MG/VIAL (PROTONIX) IVP SCH (20:42)
[2023-03-01] MEDS: traZODone HCL 50 MG TABLET (DESYREL) PO SCH (20:42)
[2023-03-02 00:15] VITALS: BP_SYST 132; PULSE 102; RESP 16; TEMP 97.7; O2SAT 97
[2023-03-02] MEDS: D5NS 1,000 ML IV SCH ×2 (03:48→13:00)
[2023-03-02] MEDS: metroNIDAZOLE 500 mg/NS 100 ML IV SCH ×2 (05:34→15:49)
[2023-03-02 06:59] LABS: BASOPHILS % (AUTO) 0.3 % (0.0-2.0); EOSINOPHILS # (AUTO) 0.1 K/uL (0.0-0.4); EOSINOPHILS % (AUTO) 0.9 % (0.0-4.0); HEMATOCRIT 28.3 % (36-48); HEMOGLOBIN 9.7 g/dL (12.0-16.0); LYMPHOCYTES # (AUTO) 0.5 K/uL (1.0-5.5); MEAN CORPUSCULAR HEMOGLOBIN 33 pg (27-31); MEAN CORPUSCULAR HGB CONC 34 % (32-36); MEAN CORPUSCULAR VOLUME 95 fL (79.0-98.0); MONOCYTES % (AUTO) 12.9 % (1.7-9.3); NEUTROPHILS # (AUTO) 6.4 K/uL (1.8-7.7); NEUTROPHILS % (AUTO) 79.9 % (40.0-70.0); PLATELET COUNT (AUTO) 281 K/uL (130-430); RED BLOOD CELL COUNT(AUTO) 2.99 MIL/uL (4.2-6.2); RED CELL DISTRIBUTION WIDTH 16.3 % (9.0-15.0)
[2023-03-02 07:10] LABS: ANION GAP 11 (5-15); CALCIUM 8.3 mg/dL (8.4-11.0); CARBON DIOXIDE 22 mmol/L (23-29); CHLORIDE 104 mmol/L (98-107); CREATININE 0.69 mg/dL (0.55-1.30); GLUCOSE 128 mg/dL (74-106); POTASSIUM 3.4 mmol/L (3.5-5.1); SODIUM SERUM 137 mmol/L (136-145); UREA NITROGEN, BLOOD 9 mg/dL (8-21)
[2023-03-02 08:14] VITALS: BP_SYST 144; PULSE 104; RESP 19; TEMP 99.2; O2SAT 95
[2023-03-02] MEDS ORDERED: POTASSIUM CHLORIDE 20 MEQ TABLET.ER PO ONE (08:45)
[2023-03-02] MEDS ORDERED: PRO40 PO (08:47)
[2023-03-02] MEDS ORDERED: LEVO-62 PO (08:53)
[2023-03-02] MEDS: PANTOPRAZOLE SODIUM 40 MG/VIAL (PROTONIX) IVP SCH (09:11)
[2023-03-02] MEDS: OLANZapine 2.5 MG TABLET PO SCH (09:11)
[2023-03-02] MEDS: DIVALPROEX SODIUM 250 MG TABLET(DEPAKOTE) PO SCH (09:12)
[2023-03-02] MEDS: cefTRIAXone 1 GM in D5W 50 ML IV SCH (09:12)
[2023-03-02 10:00] VITALS: O2SAT 94
[2023-03-02 11:22] VITALS: BP_SYST 138; PULSE 94; RESP 16; TEMP 98.1; O2SAT 94
[2023-03-02] MEDS: RIVASTIGMINE 9.5 MG/24 HR PATCH.TD24 TP SCH (11:58)
[2023-03-02 16:32] VITALS: BP_SYST 120; PULSE 112; RESP 18; TEMP 98.4; O2SAT 94
[2023-03-02 18:32] VITALS: BP_SYST 143; PULSE 101; RESP 19; TEMP 98.6; O2SAT 94
== END 2023-03-02 20:20 | DRG 871 ==
LOC: SED 03:27 → STU 06:19 → SIC 06:20 → STU 02-28 15:06 → SMU 03-01 13:54
PROVIDERS: ADMIT General Practice; ATTEND General Practice
PROC: 30233N1 Transfusion of Nonautologous Red Blood Cells into Peripheral Vein, Percutaneous Approach (ICD-10-PCS; 2023-02-26)
PROC: 0DB68ZX Excision of Stomach, Via Natural or Artificial Opening Endoscopic, Diagnostic (ICD-10-PCS; 2023-02-28)
PROC: 0DB98ZX Excision of Duodenum, Via Natural or Artificial Opening Endoscopic, Diagnostic (ICD-10-PCS; principal; 2023-02-28 13:30)
DX: A41.9 Sepsis, unspecified organism (principal); J69.0 Pneumonitis due to inhalation of food and vomit; K29.71 Gastritis, unspecified, with bleeding; N17.0 Acute kidney failure with tubular necrosis; R57.8 Other shock; K26.4 Chronic or unspecified duodenal ulcer with hemorrhage; N39.0 Urinary tract infection, site not specified; E87.20 Acidosis, unspecified; D62 Acute posthemorrhagic anemia; C90.00 Multiple myeloma not having achieved remission; D50.9 Iron deficiency anemia, unspecified; G40.909 Epilepsy, unspecified, not intractable, without status epilepticus; G20.A1 Parkinson's disease without dyskinesia, without mention of fluctuations; D72.819 Decreased white blood cell count, unspecified; Z66 Do not resuscitate; Z87.11 Personal history of peptic ulcer disease; Z88.5 Allergy status to narcotic agent; Z79.899 Other long term (current) drug therapy
CPT/HCPCS: 36415; 71045; 80048; 80053; 80076; 81000; 81001; 81015; 82607; 82728; 82746; 83037; 83540; 83550; 83605; 83735; 85007; 85025; 85027; 85610-TC; 85730-TC; 86870; 86886; 86900; 86901; 86920; 87040; 87081; 87086; 88305; 88312; 88313; 93005; 97116-GP; 97163-GP; 99285; C9113; G0378; J0696; J2250; J3010; J3490; J7050; J7060; P9021; Q0163

== ENCOUNTER 2023-04-19 09:13 | Emergency (ER) | payer BC, MEDICARE ==
[~2023-04-19] VITALS: Ht 170.2 cm; Wt 41.7 kg
[~2023-04-19 09:13] MED LIST changes: +ACET-73 PO; +DIVA-72 PO; -DIVA500T4 PO; -FERR236T3 PO; -LOSA-415 PO; +MOM PO; +MULT-1117 PO; +POLY17PO4 PO; +POTA-197 PO; +TETR-65 PO; -VITD2000 PO; -ZALE10CA PO; -ZOLP10TA2 PO
[2023-04-19 09:43] VITALS: BP_SYST 158; PULSE 124; RESP 20; TEMP 97; O2SAT 96
[2023-04-19 10:46] LABS: BASOPHILS % (AUTO) 0.3 % (0.0-2.0); EOSINOPHILS % (AUTO) 0.1 % (0.0-4.0); HEMATOCRIT 35.6 % (36-48); HEMOGLOBIN 11.5 g/dL (12.0-16.0); LYMPHOCYTES # (AUTO) 0.7 K/uL (1.0-5.5); LYMPHOCYTES % (AUTO) 9.1 % (20.5-51.5); MEAN CORPUSCULAR HEMOGLOBIN 29 pg (27-31); MEAN CORPUSCULAR HGB CONC 32 % (32-36); MEAN CORPUSCULAR VOLUME 89 fL (79.0-98.0); MONOCYTES # (AUTO) 0.4 K/uL (0.0-1.0); NEUTROPHILS # (AUTO) 6.2 K/uL (1.8-7.7); NEUTROPHILS % (AUTO) 84.5 % (40.0-70.0); PLATELET COUNT (AUTO) 380 K/uL (130-430); RED CELL DISTRIBUTION WIDTH 16.3 % (9.0-15.0); WHITE BLOOD COUNT (AUTO) 7.3 K/uL (4.8-10.8)
[2023-04-19 10:53] LABS: ANION GAP 13 (5-15); CALCIUM 9.2 mg/dL (8.4-11.0); CARBON DIOXIDE 27 mmol/L (23-29); CHLORIDE 103 mmol/L (98-107); GLUCOSE 115 mg/dL (74-106); POTASSIUM 3.2 mmol/L (3.5-5.1); SODIUM SERUM 143 mmol/L (136-145); UREA NITROGEN, BLOOD 16 mg/dL (8-21)
[2023-04-19 10:57] LABS: ALANINE AMINOTRANSFERASE 11 U/L (12-78); ALBUMIN 3.2 g/dL (3.4-4.8); ASPARTATE AMINOTRANSFERASE 12 U/L (10-37); BILIRUBIN,DIRECT 0.1 mg/dL (0.0-0.3); INR 1.1 (0.8-1.2); LIPASE 18 U/L (16-77); PROTHROMBIN TIME 10.9 SECS (9.5-12.5); TOTAL BILIRUBIN 0.5 mg/dL (0.0-1.0); TOTAL PROTEIN, SERUM 7.2 g/dL (6.4-8.3)
[2023-04-19] MEDS ORDERED: OMEP20CA15 PO (12:11)
[2023-04-19 12:18] VITALS: BP_SYST 152; PULSE 88; RESP 16; TEMP 97.6; O2SAT 94
== END 2023-04-19 12:18 | disposition home or self-care (01) ==
LOC: SED 09:13
DX: K92.2 Gastrointestinal hemorrhage, unspecified (principal); R10.13 Epigastric pain; R11.10 Vomiting, unspecified; I10 Essential (primary) hypertension; Z88.5 Allergy status to narcotic agent; Z79.899 Other long term (current) drug therapy
CPT/HCPCS: 36415; 76376; 80048; 80076; 83605; 83690; 85025; 85610; 85730; 86870; 86886; 86900; 86901; 99284

== ENCOUNTER 2023-07-21 15:57 | Emergency (ER) | payer MEDICARE ==
[~2023-07-21] VITALS: Ht 167.6 cm; Wt 44.5 kg
[~2023-07-21 15:57] MED LIST changes: +OMEP20CA15 PO
[2023-07-21 16:35] VITALS: BP_SYST 137; PULSE 65; RESP 18; TEMP 99.2; O2SAT 99
[2023-07-21] MEDS ORDERED: DICL20GE TP (21:33)
[2023-07-21 21:45] VITALS: BP_SYST 137; PULSE 65; RESP 18; TEMP 99.2; O2SAT 99
[2023-07-21] MEDS: KETOROLAC TROMETHAMINE 30 MG VIAL IM ONE (21:45)
== END 2023-07-21 21:45 | disposition home or self-care (01) ==
LOC: SED 15:57
DX: S60.222A Contusion of left hand, initial encounter (principal); I10 Essential (primary) hypertension; Z88.5 Allergy status to narcotic agent; W22.8XXA Striking against or struck by other objects, initial encounter; Y93.89 Activity, other specified; Y92.89 Other specified places as the place of occurrence of the external cause; Y99.8 Other external cause status
CPT/HCPCS: 99283; 73130; 96372; J1885

== ENCOUNTER 2023-07-30 09:57 | Emergency (ER) | payer MEDICARE ==
[~2023-07-30] VITALS: Ht 167.6 cm; Wt 41.7 kg
[~2023-07-30 09:57] MED LIST changes: +DICL20GE TP
[2023-07-30 10:03] VITALS: BP_SYST 138; PULSE 86; RESP 16; TEMP 98.7; O2SAT 97
[2023-07-30 11:46] VITALS: BP_SYST 152; PULSE 67; RESP 20; TEMP 97; O2SAT 98
== END 2023-07-30 11:48 | disposition home or self-care (01) ==
LOC: SED 09:57
DX: S05.11XA Contusion of eyeball and orbital tissues, right eye, initial encounter (principal); I10 Essential (primary) hypertension; Z88.5 Allergy status to narcotic agent; Z79.899 Other long term (current) drug therapy; Z79.2 Long term (current) use of antibiotics; W19.XXXA Unspecified fall, initial encounter; Y93.89 Activity, other specified; Y92.89 Other specified places as the place of occurrence of the external cause; Y99.8 Other external cause status
CPT/HCPCS: 99281

== ENCOUNTER 2023-08-14 10:52 | Inpatient (IN) | payer MEDICARE ==
[~2023-08-14] VITALS: Ht 167.6 cm; Wt 45.4 kg
[2023-08-14 11:01] VITALS: BP_SYST 133; PULSE 71; RESP 16; TEMP 98.6; O2SAT 99
[2023-08-14] MEDS ORDERED: PIPERACILLIN/TAZOBACTAM 3.375 GM/VIAL (ZOSYN) IV ONE (11:35)
[2023-08-14] MEDS: PIPERACILLIN/TAZO 3.375 GM in D5W 50 ML IV ONE (11:38)
[2023-08-14 11:40] LABS: BASOPHILS # (AUTO) 0.1 K/uL (0.0-0.2); BASOPHILS % (AUTO) 0.7 % (0.0-2.0); EOSINOPHILS # (AUTO) 0.1 K/uL (0.0-0.4); EOSINOPHILS % (AUTO) 1.5 % (0.0-4.0); HEMATOCRIT 23.4 % (36-48); HEMOGLOBIN 7.7 g/dL (12.0-16.0); LYMPHOCYTES # (AUTO) 1.1 K/uL (1.0-5.5); MEAN CORPUSCULAR HEMOGLOBIN 27 pg (27-31); MEAN CORPUSCULAR HGB CONC 33 % (32-36); MEAN CORPUSCULAR VOLUME 83 fL (79.0-98.0); MONOCYTES # (AUTO) 0.7 K/uL (0.0-1.0); MONOCYTES % (AUTO) 9.5 % (1.7-9.3); NEUTROPHILS # (AUTO) 5.4 K/uL (1.8-7.7); NEUTROPHILS % (AUTO) 73.3 % (40.0-70.0); PLATELET COUNT (AUTO) 463 K/uL (130-430); RED BLOOD CELL COUNT(AUTO) 2.83 MIL/uL (4.2-6.2); RED CELL DISTRIBUTION WIDTH 19.2 % (9.0-15.0); WHITE BLOOD COUNT (AUTO) 7.3 K/uL (4.8-10.8)
[2023-08-14 12:48] LABS: INR 1.1 (0.8-1.2)
[2023-08-14 12:57] LABS: ALANINE AMINOTRANSFERASE 10 U/L (12-78); ALBUMIN 3.4 g/dL (3.4-4.8); ANION GAP 12 (5-15); ASPARTATE AMINOTRANSFERASE 12 U/L (10-37); CALCIUM 8.6 mg/dL (8.4-11.0); CARBON DIOXIDE 23 mmol/L (23-29); CHLORIDE 106 mmol/L (98-107); CREATININE 1.16 mg/dL (0.55-1.30); GLUCOSE 74 mg/dL (74-106); POTASSIUM 3.4 mmol/L (3.5-5.1); SODIUM SERUM 141 mmol/L (136-145); TOTAL BILIRUBIN 0.2 mg/dL (0.0-1.0); UREA NITROGEN, BLOOD 17 mg/dL (8-21)
[2023-08-14 12:59] LABS: BILIRUBIN,DIRECT 0.1 mg/dL (0.0-0.3)
[2023-08-14] MEDS ORDERED: IRON-12 PO (13:21)
[2023-08-14] MEDS ORDERED: LOSA100T24 PO (13:21)
[2023-08-14] MEDS ORDERED: OLAN2.5T3 PO (13:21)
[2023-08-14] MEDS ORDERED: CHOL100062 PO (13:21)
[2023-08-14] MEDS ORDERED: PANTOPRAZOLE SODIUM 40 MG/VIAL (PROTONIX) ONE (13:26)
[2023-08-14] MEDS: PANTOPRAZOLE SODIUM 80 MG in NS 100 ML IV ONE (13:41)
[2023-08-14 13:53] LABS: BILIRUBIN,URINE NEGATIVE (NEGATIVE); BLOOD, URINE NEGATIVE (NEGATIVE); CLARITY/URINE CLEAR (CLEAR); COLOR,URINE YELLOW (YELLOW); GLUCOSE,URINE NEGATIVE (NEGATIVE); KETONES,URINE NEGATIVE (NEGATIVE); LEUKOCYTE ESTERASE ,URINE NEGATIVE (NEGATIVE); NITRITE, URINE NEGATIVE (NEGATIVE); PH,URINE 6.5 (5.0-8.0); PROTEIN URINE NEGATIVE (NEGATIVE); UROBILINOGEN,URINE 0.2 (0.2-1.0)
[2023-08-14] MEDS: ONDANSETRON HCL 4 MG/2 ML VIAL IVP ONE (13:57)
[2023-08-14] MEDS: fentaNYL CITRATE/PF 100 MCG/2 ML AMP IVP ONE (13:57)
[2023-08-14] MEDS ORDERED: ONDANSETRON HCL 4 MG/2 ML VIAL IVP PRN ×2 (14:00→22:45)
[2023-08-14] MEDS ORDERED: HYDROcodone/ACETAMIN 10-325 MG TAB PO PRN (14:00)
[2023-08-14] MEDS ORDERED: ACETAMINOPHEN 325 MG TABLET PO PRN (14:00)
[2023-08-14 17:05] VITALS: BP_SYST 160; PULSE 70; RESP 18; TEMP 98; O2SAT 97
[2023-08-14] MEDS: HYDROcodone/ACETAMIN 5-325 MG TAB (NORCO/ VICODIN) PO PRN (18:51)
[2023-08-14 21:37] VITALS: BP_SYST 136; PULSE 75; RESP 15; TEMP 98; O2SAT 97
[2023-08-14] MEDS: ZOLPIDEM TARTRATE 5 MG TABLET PO ONE (22:37)
[2023-08-14] MEDS: ZOLPIDEM TARTRATE 5 MG TABLET ONE (22:38)
[2023-08-14] MEDS ORDERED: HYDROcodone/ACETAMIN 5-325 MG TAB (NORCO/ VICODIN) PO PRN (22:45)
[2023-08-14] MEDS ORDERED: NALOXONE HCL 0.4 MG/ML AMP (NARCAN) IVP PRN ×2 (22:45)
[2023-08-15 00:06] VITALS: BP_SYST 130; PULSE 80; RESP 16; TEMP 97.6; O2SAT 98
[2023-08-15] MEDS ORDERED: PIPERACILLIN/TAZOBACTAM 3.375 GM/VIAL (ZOSYN) IV ONE (00:49)
[2023-08-15] MEDS: PIPERACILLIN/TAZO 3.375/DEX-IS 50 ML IV SCH (01:07)
[2023-08-15 01:30] VITALS: BP_SYST 134; PULSE 70; RESP 17; TEMP 96.5; O2SAT 94
[2023-08-15 03:50] LABS: ERYTHROCYTE SEDIMENTATION RATE 11 MM/HR (0-20)
[2023-08-15 03:57] LABS: BASOPHILS % (AUTO) 0.8 % (0.0-2.0); EOSINOPHILS # (AUTO) 0.2 K/uL (0.0-0.4); EOSINOPHILS % (AUTO) 3.2 % (0.0-4.0); HEMATOCRIT 22.5 % (36-48); HEMOGLOBIN 7.3 g/dL (12.0-16.0); LYMPHOCYTES # (AUTO) 1.4 K/uL (1.0-5.5); LYMPHOCYTES % (AUTO) 25.7 % (20.5-51.5); MEAN CORPUSCULAR HEMOGLOBIN 27 pg (27-31); MEAN CORPUSCULAR HGB CONC 33 % (32-36); MEAN CORPUSCULAR VOLUME 82 fL (79.0-98.0); MONOCYTES # (AUTO) 0.7 K/uL (0.0-1.0); MONOCYTES % (AUTO) 12.4 % (1.7-9.3); NEUTROPHILS # (AUTO) 3.1 K/uL (1.8-7.7); NEUTROPHILS % (AUTO) 57.9 % (40.0-70.0); PLATELET COUNT (AUTO) 425 K/uL (130-430); RED BLOOD CELL COUNT(AUTO) 2.75 MIL/uL (4.2-6.2); RED CELL DISTRIBUTION WIDTH 18.9 % (9.0-15.0); WHITE BLOOD COUNT (AUTO) 5.3 K/uL (4.8-10.8)
[2023-08-15 04:31] LABS: ANION GAP 9 (5-15); CALCIUM 8.4 mg/dL (8.4-11.0); CARBON DIOXIDE 25 mmol/L (23-29); CHLORIDE 106 mmol/L (98-107); CREATININE 0.99 mg/dL (0.55-1.30); GLUCOSE 108 mg/dL (74-106); POTASSIUM 4.2 mmol/L (3.5-5.1); SODIUM SERUM 140 mmol/L (136-145); UREA NITROGEN, BLOOD 12 mg/dL (8-21)
[2023-08-15] MEDS: ACETAMINOPHEN 325 MG TABLET PO PRN (06:03)
[2023-08-15] MEDS: NORMAL SALINE 5 ML DISP.SYRIN IVF SCH (06:04)
[2023-08-15 08:00] VITALS: BP_SYST 133; PULSE 74; RESP 18; TEMP 97.9; O2SAT 99
[2023-08-15] MEDS ORDERED: RIVASTIGMINE 9.5 MG/24 HR PATCH.TD24 TP SCH (09:00)
[2023-08-15] MEDS ORDERED: NON-FORMULARY MEDICATION (Diclofenac Sodium (Voltaren Arthritis Pain) 2 GM) TP SCH (09:00)
[2023-08-15] MEDS: LOSARTAN POTASSIUM 50 MG TABLET (COZAAR) PO SCH (09:05)
[2023-08-15] MEDS: OLANZapine 2.5 MG TABLET PO SCH (09:05)
[2023-08-15] MEDS: CHOLECALCIFEROL (VITAMIN D3) 2,000 UNIT TABLET PO SCH (09:05)
[2023-08-15] MEDS: DIVALPROEX SODIUM 250 MG TABLET(DEPAKOTE) PO SCH (09:05)
[2023-08-15] MEDS: MULTIVITS,CA,MINERALS/IRON/FA 1 TABLET PO SCH (09:06)
[2023-08-15] MEDS: HYDROcodone/ACETAMIN 10-325 MG TAB PO PRN (09:06)
[2023-08-15] MEDS: PANTOPRAZOLE SODIUM 40 MG TAB PO SCH (09:06)
[2023-08-15 12:30] VITALS: BP_SYST 131; PULSE 77; RESP 17; TEMP 98.2; O2SAT 97
[2023-08-15 15:09] LABS: BILIRUBIN,URINE NEGATIVE (NEGATIVE); BLOOD, URINE NEGATIVE (NEGATIVE); CLARITY/URINE CLEAR (CLEAR); COLOR,URINE YELLOW (YELLOW); GLUCOSE,URINE NEGATIVE (NEGATIVE); KETONES,URINE TRACE (NEGATIVE); LEUKOCYTE ESTERASE ,URINE NEGATIVE (NEGATIVE); NITRITE, URINE NEGATIVE (NEGATIVE); PH,URINE 6.5 (5.0-8.0); PROTEIN URINE NEGATIVE (NEGATIVE); UROBILINOGEN,URINE 0.2 (0.2-1.0)
[2023-08-15 16:17] VITALS: BP_SYST 129; PULSE 73; RESP 18; TEMP 97.3; O2SAT 98
[2023-08-15 20:00] VITALS: BP_SYST 143; PULSE 79; RESP 16; TEMP 97.9; O2SAT 96
[2023-08-15] MEDS: CEFTAROLINE FOSAMIL ACETATE 400 MG in NS 250 ML IV SCH (20:53)
[2023-08-15] MEDS: traZODone HCL 50 MG TABLET (DESYREL) PO SCH (20:54)
[2023-08-16] VITALS: BP_SYST 155; PULSE 87; RESP 16; TEMP 97.9; O2SAT 96
[2023-08-16 07:07] LABS: BASOPHILS # (AUTO) 0.1 K/uL (0.0-0.2); BASOPHILS % (AUTO) 1.1 % (0.0-2.0); EOSINOPHILS # (AUTO) 0.2 K/uL (0.0-0.4); EOSINOPHILS % (AUTO) 3.2 % (0.0-4.0); HEMATOCRIT 22.6 % (36-48); HEMOGLOBIN 7.3 g/dL (12.0-16.0); LYMPHOCYTES # (AUTO) 1.1 K/uL (1.0-5.5); LYMPHOCYTES % (AUTO) 17.1 % (20.5-51.5); MEAN CORPUSCULAR HEMOGLOBIN 27 pg (27-31); MEAN CORPUSCULAR HGB CONC 32 % (32-36); MEAN CORPUSCULAR VOLUME 82 fL (79.0-98.0); MONOCYTES # (AUTO) 0.6 K/uL (0.0-1.0); MONOCYTES % (AUTO) 9.9 % (1.7-9.3); NEUTROPHILS # (AUTO) 4.3 K/uL (1.8-7.7); NEUTROPHILS % (AUTO) 68.7 % (40.0-70.0); PLATELET COUNT (AUTO) 424 K/uL (130-430); RED BLOOD CELL COUNT(AUTO) 2.74 MIL/uL (4.2-6.2); RED CELL DISTRIBUTION WIDTH 18.9 % (9.0-15.0); RETICULOCYTE COUNT 1.6 % (0.5-1.5); WHITE BLOOD COUNT (AUTO) 6.2 K/uL (4.8-10.8)
[2023-08-16 07:18] LABS: ERYTHROCYTE SEDIMENTATION RATE 9 MM/HR (0-20)
[2023-08-16 07:41] LABS: ALBUMIN 2.8 g/dL (3.4-4.8); ANION GAP 11 (5-15); ASPARTATE AMINOTRANSFERASE < 5 U/L (10-37); CALCIUM 8.7 mg/dL (8.4-11.0); CARBON DIOXIDE 23 mmol/L (23-29); CHLORIDE 105 mmol/L (98-107); GLUCOSE 88 mg/dL (74-106); POTASSIUM 4.5 mmol/L (3.5-5.1); SODIUM SERUM 139 mmol/L (136-145); TOTAL BILIRUBIN 0.2 mg/dL (0.0-1.0); TOTAL PROTEIN, SERUM 6.1 g/dL (6.4-8.3); UREA NITROGEN, BLOOD 16 mg/dL (8-21)
[2023-08-16 07:44] LABS: TOTAL IRON BIND. CAPACITY 473 ug/dL (250-450)
[2023-08-16 07:50] LABS: ALANINE AMINOTRANSFERASE 16 U/L (12-78)
[2023-08-16 11:22] VITALS: BP_SYST 149; PULSE 67; RESP 16; TEMP 97.4; O2SAT 98
[2023-08-16 16:54] VITALS: BP_SYST 134; PULSE 66; RESP 17; TEMP 97.9; O2SAT 97
[2023-08-16] MEDS ORDERED: LIDOCAINE 1% 10 MG/ML, 20 ML MDV ONE (17:26)
[2023-08-16] MEDS: LR 1,000 ML IV SCH (18:00)
[2023-08-16] MEDS ORDERED: ONDANSETRON HCL 4 MG/2 ML VIAL IVP PRN (18:00)
[2023-08-16] MEDS: HYDROmorphone 1 MG/ML INJ. CARTRIDGE ONE (18:30)
[2023-08-16] MEDS: HYDROmorphone 1 MG/ML INJ. CARTRIDGE IVP PRN (18:32)
[2023-08-16 20:00] VITALS: O2SAT 97
[2023-08-16] MEDS: SOD FERRIC GLUC COMPLEX/SUC 125 MG in NS 100 ML IV SCH (20:12)
[2023-08-17] VITALS (7 sets, daily range): BP systolic 116–144; PULSE 68–78; RESP 16–18; TEMP 97.8–100.3; O2SAT 96–98
[2023-08-17 05:27] LABS: ERYTHROCYTE SEDIMENTATION RATE 13 MM/HR (0-20)
[2023-08-17 05:45] LABS: BASOPHILS # (AUTO) 0.1 K/uL (0.0-0.2); BASOPHILS % (AUTO) 0.9 % (0.0-2.0); EOSINOPHILS % (AUTO) 0.7 % (0.0-4.0); HEMOGLOBIN 7.3 g/dL (12.0-16.0); LYMPHOCYTES # (AUTO) 0.7 K/uL (1.0-5.5); LYMPHOCYTES % (AUTO) 12.6 % (20.5-51.5); MEAN CORPUSCULAR HEMOGLOBIN 27 pg (27-31); MEAN CORPUSCULAR HGB CONC 33 % (32-36); MEAN CORPUSCULAR VOLUME 80 fL (79.0-98.0); MONOCYTES # (AUTO) 0.4 K/uL (0.0-1.0); MONOCYTES % (AUTO) 7.7 % (1.7-9.3); NEUTROPHILS # (AUTO) 4.5 K/uL (1.8-7.7); NEUTROPHILS % (AUTO) 78.1 % (40.0-70.0); PLATELET COUNT (AUTO) 424 K/uL (130-430); RED BLOOD CELL COUNT(AUTO) 2.73 MIL/uL (4.2-6.2); RED CELL DISTRIBUTION WIDTH 18.5 % (9.0-15.0); WHITE BLOOD COUNT (AUTO) 5.7 K/uL (4.8-10.8)
[2023-08-17 06:07] LABS: QUANTIFERON TB GOLD Negative (Negative)
[2023-08-17 06:11] LABS: ANION GAP 11 (5-15); CALCIUM 8.7 mg/dL (8.4-11.0); CARBON DIOXIDE 26 mmol/L (23-29); CHLORIDE 102 mmol/L (98-107); CREATININE 0.96 mg/dL (0.55-1.30); GLUCOSE 118 mg/dL (74-106); POTASSIUM 4.2 mmol/L (3.5-5.1); SODIUM SERUM 139 mmol/L (136-145); UREA NITROGEN, BLOOD 16 mg/dL (8-21)
[2023-08-17 08:10] LABS: HEMATOCRIT 21.9 % (36-48)
[2023-08-18 06:16] LABS: BASOPHILS % (AUTO) 0.8 % (0.0-2.0); EOSINOPHILS # (AUTO) 0.2 K/uL (0.0-0.4); EOSINOPHILS % (AUTO) 3.5 % (0.0-4.0); HEMOGLOBIN 7.1 g/dL (12.0-16.0); MEAN CORPUSCULAR HEMOGLOBIN 26 pg (27-31); MEAN CORPUSCULAR HGB CONC 32 % (32-36); MEAN CORPUSCULAR VOLUME 82 fL (79.0-98.0); MONOCYTES # (AUTO) 0.8 K/uL (0.0-1.0); MONOCYTES % (AUTO) 15.2 % (1.7-9.3); NEUTROPHILS # (AUTO) 3.3 K/uL (1.8-7.7); NEUTROPHILS % (AUTO) 62.5 % (40.0-70.0); PLATELET COUNT (AUTO) 382 K/uL (130-430); RED BLOOD CELL COUNT(AUTO) 2.69 MIL/uL (4.2-6.2); RED CELL DISTRIBUTION WIDTH 18.4 % (9.0-15.0); WHITE BLOOD COUNT (AUTO) 5.3 K/uL (4.8-10.8)
[2023-08-18 06:34] LABS: ANION GAP 9 (5-15); CALCIUM 8.4 mg/dL (8.4-11.0); CARBON DIOXIDE 27 mmol/L (23-29); CHLORIDE 104 mmol/L (98-107); CREATININE 0.94 mg/dL (0.55-1.30); GLUCOSE 100 mg/dL (74-106); POTASSIUM 4.4 mmol/L (3.5-5.1); SODIUM SERUM 140 mmol/L (136-145); UREA NITROGEN, BLOOD 14 mg/dL (8-21)
[2023-08-18 07:42] LABS: ERYTHROCYTE SEDIMENTATION RATE 12 MM/HR (0-20)
[2023-08-18 07:50] VITALS: O2SAT 97
[2023-08-18 08:07] VITALS: BP_SYST 157; PULSE 74; RESP 17; TEMP 97.9; O2SAT 97
[2023-08-18 11:36] VITALS: BP_SYST 144; PULSE 79; RESP 16; TEMP 97.6; O2SAT 95
[2023-08-18 16:23] VITALS: BP_SYST 143; PULSE 78; RESP 16; TEMP 97.9; O2SAT 95
[2023-08-18 19:50] VITALS: O2SAT 95
[2023-08-19 02:13] VITALS: BP_SYST 142; PULSE 59; RESP 18; TEMP 98.2; O2SAT 97
[2023-08-19] MEDS: LORazepam 2 MG/ML VIAL IVP PRN (03:10)
[2023-08-19 03:52] LABS: ERYTHROCYTE SEDIMENTATION RATE 14 MM/HR (0-20)
[2023-08-19 04:21] LABS: ALANINE AMINOTRANSFERASE 7 U/L (12-78); ALBUMIN 2.7 g/dL (3.4-4.8); ANION GAP 8 (5-15); ASPARTATE AMINOTRANSFERASE 8 U/L (10-37); CALCIUM 8.7 mg/dL (8.4-11.0); CARBON DIOXIDE 29 mmol/L (23-29); CHLORIDE 103 mmol/L (98-107); CREATININE 0.95 mg/dL (0.55-1.30); GLUCOSE 118 mg/dL (74-106); POTASSIUM 4.1 mmol/L (3.5-5.1); SODIUM SERUM 140 mmol/L (136-145); TOTAL BILIRUBIN 0.1 mg/dL (0.0-1.0); TOTAL PROTEIN, SERUM 6.1 g/dL (6.4-8.3); UREA NITROGEN, BLOOD 12 mg/dL (8-21)
[2023-08-19 04:41] LABS: BASOPHILS # (AUTO) 0.1 K/uL (0.0-0.2); BASOPHILS % (AUTO) 1.1 % (0.0-2.0); EOSINOPHILS # (AUTO) 0.2 K/uL (0.0-0.4); EOSINOPHILS % (AUTO) 3.6 % (0.0-4.0); HEMOGLOBIN 7.3 g/dL (12.0-16.0); LYMPHOCYTES # (AUTO) 0.8 K/uL (1.0-5.5); LYMPHOCYTES % (AUTO) 16.6 % (20.5-51.5); MEAN CORPUSCULAR HEMOGLOBIN 27 pg (27-31); MEAN CORPUSCULAR HGB CONC 33 % (32-36); MEAN CORPUSCULAR VOLUME 82 fL (79.0-98.0); MONOCYTES # (AUTO) 0.6 K/uL (0.0-1.0); MONOCYTES % (AUTO) 13.1 % (1.7-9.3); NEUTROPHILS # (AUTO) 3.2 K/uL (1.8-7.7); NEUTROPHILS % (AUTO) 65.6 % (40.0-70.0); PLATELET COUNT (AUTO) 322 K/uL (130-430); RED CELL DISTRIBUTION WIDTH 18.6 % (9.0-15.0); WHITE BLOOD COUNT (AUTO) 4.9 K/uL (4.8-10.8)
[2023-08-19 08:00] VITALS: BP_SYST 130; PULSE 74; RESP 18; TEMP 97.7; O2SAT 74
[2023-08-19 08:15] VITALS: O2SAT 98
[2023-08-19 12:23] VITALS: BP_SYST 134; PULSE 77; RESP 18; TEMP 97.5; O2SAT 99
[2023-08-19 18:32] VITALS: BP_SYST 135; PULSE 83; RESP 16; TEMP 98.2; O2SAT 98
[2023-08-19 20:15] VITALS: BP_SYST 121; PULSE 83; RESP 18; TEMP 96.6; O2SAT 98
[2023-08-20] VITALS: BP_SYST 123; PULSE 73; RESP 18; TEMP 98.3; O2SAT 98
[2023-08-20 00:27] VITALS: BP_SYST 128; PULSE 85; RESP 16; TEMP 96.8; O2SAT 96
[2023-08-20 05:55] LABS: ERYTHROCYTE SEDIMENTATION RATE 18 MM/HR (0-20)
[2023-08-20 06:00] LABS: BASOPHILS # (AUTO) 0.1 K/uL (0.0-0.2); EOSINOPHILS # (AUTO) 0.2 K/uL (0.0-0.4); EOSINOPHILS % (AUTO) 2.8 % (0.0-4.0); LYMPHOCYTES # (AUTO) 0.9 K/uL (1.0-5.5); LYMPHOCYTES % (AUTO) 14.7 % (20.5-51.5); MEAN CORPUSCULAR HEMOGLOBIN 27 pg (27-31); MEAN CORPUSCULAR HGB CONC 32 % (32-36); MEAN CORPUSCULAR VOLUME 82 fL (79.0-98.0); MONOCYTES # (AUTO) 0.9 K/uL (0.0-1.0); MONOCYTES % (AUTO) 14.8 % (1.7-9.3); NEUTROPHILS # (AUTO) 4.1 K/uL (1.8-7.7); NEUTROPHILS % (AUTO) 66.7 % (40.0-70.0); PLATELET COUNT (AUTO) 301 K/uL (130-430); RED BLOOD CELL COUNT(AUTO) 2.63 MIL/uL (4.2-6.2); RED CELL DISTRIBUTION WIDTH 18.6 % (9.0-15.0); WHITE BLOOD COUNT (AUTO) 6.2 K/uL (4.8-10.8)
[2023-08-20 06:08] LABS: ANION GAP 8 (5-15); CALCIUM 8.6 mg/dL (8.4-11.0); CARBON DIOXIDE 27 mmol/L (23-29); CHLORIDE 104 mmol/L (98-107); CREATININE 0.91 mg/dL (0.55-1.30); GLUCOSE 93 mg/dL (74-106); POTASSIUM 4.3 mmol/L (3.5-5.1); SODIUM SERUM 139 mmol/L (136-145); UREA NITROGEN, BLOOD 18 mg/dL (8-21)
[2023-08-20 07:24] LABS: HEMATOCRIT 21.7 % (36-48)
[2023-08-20 08:00] VITALS: BP_SYST 119; PULSE 81; RESP 18; TEMP 97; O2SAT 97
[2023-08-20 12:00] VITALS: BP_SYST 113; PULSE 71; RESP 16; TEMP 98.4; O2SAT 99
[2023-08-20 13:20] VITALS: BP_SYST 119; PULSE 81; RESP 18; TEMP 97.1; O2SAT 97
[2023-08-20] MEDS ORDERED: EPOETIN ALFA-EPBX 4,000 UNITS/ML VIAL SUBCUT ONE (15:00)
[2023-08-21 22:07] LABS: COCCIDIOIDES AB IGG 0.4 IV (<=0.9); COCCIDIOIDES AB IGM 0.3 IV (<=0.9)
== END 2023-08-20 13:55 | disposition home or self-care (01) | DRG 857 ==
LOC: SED 10:52 → SMU 13:42
PROVIDERS: ADMIT Preventive Medicine Preventive Medicine/Occupational Environmental Medicine; ATTEND Preventive Medicine Preventive Medicine/Occupational Environmental Medicine
PROC: 0JBK0ZZ Excision of Left Hand Subcutaneous Tissue and Fascia, Open Approach (ICD-10-PCS; principal; 2023-08-16 17:31)
DX: T80.29XA Infection following other infusion, transfusion and therapeutic injection, initial encounter (principal); E44.0 Moderate protein-calorie malnutrition; L02.512 Cutaneous abscess of left hand; Z68.1 Body mass index [BMI] 19.9 or less, adult; L76.32 Postprocedural hematoma of skin and subcutaneous tissue following other procedure; D64.9 Anemia, unspecified; I10 Essential (primary) hypertension; G47.00 Insomnia, unspecified; G20.A1 Parkinson's disease without dyskinesia, without mention of fluctuations; R73.9 Hyperglycemia, unspecified; E87.5 Hyperkalemia; D75.839 Thrombocytosis, unspecified; E88.09 Other disorders of plasma-protein metabolism, not elsewhere classified; Z90.710 Acquired absence of both cervix and uterus; Z87.11 Personal history of peptic ulcer disease; Z79.899 Other long term (current) drug therapy
CPT/HCPCS: 36415; 70450-TC; 70486; 71045; 73200-TC; 80048; 80053; 80076; 81001; 81003; 82272; 83540; 83550; 83605; 84484; 85025; 85044; 85610; 85651; 85730; 86480; 86635; 86870; 86886; 86900; 86901; 87040; 87070; 87075; 87081; 87086; 93005; 96365; 96367; 96375; 99291; C9113; J0712; J1170; J2001; J2060; J2250; J2405; J2543; J2704; J2916; J3010; J7050; J7120; Q5106